=== PATIENT | female | born 1950 | race Caucasian/White ===

== ENCOUNTER 2025-07-17 14:42 | Inpatient (IN) | payer MEDICARE, OTHER, SELFPAY ==
[2025-07-17 09:27] VITALS: BP 170/90
--- NOTE | 2025-07-17 10:13 | ED.GENMED ---
History of Present Illness
<Christoph Castillo PA-C - Last Filed: 07/17/25 13:43>
General
Chief Complaint: Abdominal Pain
Source: patient and records
Time Seen by Provider: 07/17/25 09:54
History of Present Illness
History of Present Illness:
75-year-old female with past medical history of diverticulitis, GERD, previous pancreatic cyst, previous breast cancer in remission presenting to the emergency department for evaluation of generalized lower abdominal pain x 2 weeks accompanied with
poor appetite, fatigue, 10 pound weight loss and noting a loose yellow stool, pain is somewhat reminiscent of previous diverticulitis but states she normally does not have the other symptoms and that her diet modification to a liquid based diet
normally makes the symptoms better. She did not contact her primary care provider but attempted to make an appointment with a GI specialist but was unable to be seen until the end of July. Patient denies any fevers, chills, rigors. She did not
take anything for her symptoms today.
Past History
<Christoph Castillo PA-C - Last Filed: 07/17/25 13:43>
Past History
ED Past Medical History: Cancer, GERD, Other (Hiatal hernia) and Other (Mycobacterial and)
ED Past Surgical History: and Other
Social History
Tobacco: Non-smoker
Alcohol: None
Drug: None
Personal:
Living: with family
Review of Systems
<Christoph Castillo PA-C - Last Filed: 07/17/25 13:43>
Review of Systems
All Other Systems: ROS reviewed and negative except as documented in HPI and ROS
Phy Exam
<Christoph Castillo PA-C - Last Filed: 07/17/25 13:43>
Physical Exam
Physical Exam:
GENERAL: Alert , in no apparent distress
EYE: clear conjunctiva b/l
HEAD: NCAT
ENT: o/p clr, mmm.
CARDIAC: Regular rate and rhythm .
LUNGS: Clear breath sounds bilaterally, no acute respiratory distress, no wheezes/rales/rhonchi
ABDOMEN: Soft, without focal tenderness, no r/g, no cvat
NEUROLOGICAL: Alert and oriented
SKIN: Warm and dry, skin intact.
MUSCULOSKELETAL: well perfused.
PSYCH: Normal and appropriate interaction.
Scores
<Christoph Castillo PA-C - Last Filed: 07/17/25 13:43>
Heart Failure Risk
Heart Failure Risk Score: Not Applicable
Heart Score for Chest Pain Patients
STEMI patient?: Not applicable
Withdrawal Assessment of Alcohol
Withdrawal Assessment Completed?: Not applicable
Course
<Christoph Castillo PA-C - Last Filed: 07/17/25 13:43>
Orders/Labs/Results
Orders:
Orders
07/17/25 10:05
Diphenhydramine [Benadryl] 50 mg IV NOW STA
Hydrocortisone Sod Succinate [Solu-Cortef] 200 mg IV NOW STA
07/17/25 10:06
CT Abd/pelvis W Iv Cont Urgent
Comment:
Reason For Exam: generalized lower abd pain
07/17/25 10:23
Complete Blood Count/With Diff Urgent
Comprehensive Metabolic Panel Urgent
Lipase Urgent
Abnormal Lab Results
07/17/25
10:23
Absolute Neuts (auto) 8.6 H 10^3/uL
(1.4-6.5)
Absolute Lymphs (auto) 0.8 L 10^3/uL
(1.2-3.4)
Neutrophils % 86.2 H %
(42.2-75.2)
Lymphocytes % 7.5 L %
(20.5-51.1)
BUN 6 L mg/dl
(7-17)
Glucose 106 H mg/dl
(70-99)
Total Bilirubin 1.7 H mg/dl
(0.2-1.3)
AST 132 H U/L
(14-36)
ALT 186 H U/L
(0-35)
Alkaline Phosphatase 181 H U/L
(38-126)
07/17/25 10:23
07/17/25 10:23
Vital Signs
Initial and Last Documented VS:
Initial Vital Signs
Temp Pulse Resp BP Pulse Ox
97.7 F 97 20 170/90 98
07/17/25 09:27 07/17/25 09:27 07/17/25 09:27 07/17/25 09:27 07/17/25 09:27
Last Documented Vital Signs
Temp Pulse Resp BP Pulse Ox
97.7 F 97 20 170/90 98
07/17/25 09:27 07/17/25 09:27 07/17/25 09:27 07/17/25 09:27 07/17/25 10:18
<Macario Grover, DO - Last Filed: 07/17/25 13:35>
Orders/Labs/Results
Orders:
Orders
07/17/25 10:05
Diphenhydramine [Benadryl] 50 mg IV NOW STA
Hydrocortisone Sod Succinate [Solu-Cortef] 200 mg IV NOW STA
07/17/25 10:06
CT Abd/pelvis W Iv Cont Urgent
Comment:
Reason For Exam: generalized lower abd pain
07/17/25 10:23
Complete Blood Count/With Diff Urgent
Comprehensive Metabolic Panel Urgent
Lipase Urgent
Abnormal Lab Results
07/17/25
10:23
Absolute Neuts (auto) 8.6 H 10^3/uL
(1.4-6.5)
Absolute Lymphs (auto) 0.8 L 10^3/uL
(1.2-3.4)
Neutrophils % 86.2 H %
(42.2-75.2)
Lymphocytes % 7.5 L %
(20.5-51.1)
BUN 6 L mg/dl
(7-17)
Glucose 106 H mg/dl
(70-99)
Total Bilirubin 1.7 H mg/dl
(0.2-1.3)
AST 132 H U/L
(14-36)
ALT 186 H U/L
(0-35)
Alkaline Phosphatase 181 H U/L
(38-126)
07/17/25 10:23
07/17/25 10:23
Vital Signs
Initial and Last Documented VS:
Initial Vital Signs
Temp Pulse Resp BP Pulse Ox
97.7 F 97 20 170/90 98
07/17/25 09:27 07/17/25 09:27 07/17/25 09:27 07/17/25 09:27 07/17/25 09:27
Last Documented Vital Signs
Temp Pulse Resp BP Pulse Ox
97.7 F 97 20 170/90 98
07/17/25 09:27 07/17/25 09:27 07/17/25 09:27 07/17/25 09:27 07/17/25 10:18
<Christoph Castillo PA-C - Last Filed: 07/17/25 13:43>
MDM/Problems Addressed
Differential Diagnosis Includes:
Diverticulitis
Colitis
Dehydration
Electrolyte Imbalance
C.Diff considered however still with formed stools
Pancreatitis
Less concern for appy/choley
MDM/Problems Addressed:
75-year-old female presenting the ER for evaluation of lower abdominal pain for about 2 weeks, loose stools during this time, attempted more liquid based diet but without any resolution of symptoms. Hemodynamically stable here. Will obtain labs
and CT imaging. Patient declining anything for pain.
<Christoph Castillo PA-C - Last Filed: 07/17/25 13:43>
*Radiology
Radiology exam reviewed: radiology read reviewed
*Pulse Oximetry
SaO2: 98
Oxygen Mode of Delivery: Room air
Patient hypoxic: no
*Critical Care Note
Total Time (30-74mins, 75-104mins- exclusive of procedures): Not Applicable
Data Reviewed
Review of Other/Old Records Reveals: Records and Radiology Studies
<Christoph Castillo PA-C - Last Filed: 07/17/25 13:43>
Patient Management
Discussion with other providers: Hospitalist and Programming Development Project Manager
Escalation/DeEscalation of care consider admission/obs:
CT scan shows obstructive common bile duct and pancreatic duct. I do suspect that this is the cause for patient's pain as well as abnormal LFTs. Given her age, history of the pancreatic cyst combined with her lab abnormalities and imaging findings
I do feel it would be in patient's best interest to be admitted for further evaluation, GI consultation. Hospitalist team is aware and accepts for continued evaluation and treatment. Both the GI team and general surgery team were also notified and
can see the patient in consult as needed.
ED Attending Note
<Christoph Castillo PA-C - Last Filed: 07/17/25 13:43>
-
Portions of this chart may have been created with voice recognition software.� Occasional wrong word or��sound alike� substitutions may have occurred due to the inherent limitations of voice recognition software.
<Macario Grover DO - Last Filed: 07/17/25 13:35>
ED Attending Note
Patient seen and examined by attending physician: Yes
I performed a history and physical exam of patient and discussed management with resident, I reviewed resident's note and agree with documented findings and plan of care.: Yes
ED Attending Note:
I evaluated patient at bedside. White blood cell count is 9.9, total bili 1.7, transaminases are in the 100s, alk phos 181, lipase normal, there is concern for obstruction at CBD and main pancreatic duct related to lesion at the pancreatic head.
Patient did have evaluation of pancreatic cysts and had endoscopic ultrasound in 2022 through [facility] with fine-needle aspiration with pathology that did not suggest malignancy
Discharge Plan
Departure
Patient Disposition: Admit
Date of Disposition: 07/17/25
Time of Disposition: 13:13
Presentation/result/management discussed w/ accepting MD/DO: Hospitalist
Discharge Problem:
Common bile duct obstruction, Pancreatic duct obstruction
Prescriptions:
No Action
lisinopril 5 mg Tablet
5 mg PO DAILY
cholecalciferol (vitamin D3) 25 mcg (1,000 unit) Tablet
50 mcg PO DAILY
Visbiome 112.5 billion cell Capsule
1 cap PO DAILY
Calcium
275 mg PO DAILYPRN PRN (Reason: supplement)
Referrals:
Alejandra Arshad MD [Family Provider, Family Practice]
Interventions
Interventions:
*Neglect/Abuse Screening Last Done: 07/17/25 09:27
*Risk Screen - Suicide (C-SSRS) Last Done: 07/17/25 09:27
OY-Gcxjcv-Gcmnmhktlo Assessment Last Done: 07/17/25 10:30
Discharge Date and Time
Print Language: POLISH
[2025-07-17] MEDS: SOLU-CORTEF 200 MG IV (10:24)
[2025-07-17] MEDS: BENADRYL 50 MG IV (10:24)
[2025-07-17 10:27] VITALS: BMI 25.3
[2025-07-17 10:48] LABS: Hematocrit 40.9 % (37.0-47.0); Hemoglobin 13.9 g/dL (12.0-16.0); Mean Corp Hgb Conc. 34.0 g/dL (33.0-37.0); Mean Corpuscular Volume 88.1 fL (81.0-99.0); Nucleated Red Blood Cells % 0 %; Platelet Count 265 10^3/uL (130-400); Red Cell Dist. Width 13.4 % (11.5-14.5)
[2025-07-17 10:49] LABS: ALT (SGPT) 186 U/L (0-35); AST (SGOT) 132 U/L (14-36); Albumin 4.5 g/dl (3.5-5.0); Alkaline Phosphatase 181 U/L (38-126); Blood Urea Nitrogen 6 mg/dl (7-17); Calcium 9.7 mg/dl (8.4-10.2); Carbon Dioxide 25 mmol/L (22-30); Chloride 104 mmol/L (98-107); Estimated Creatinine Clearance 49 ml/min; Glucose 106 mg/dl (70-99); Lipase 67 U/L (23-300); Potassium 3.6 mmol/L (3.5-5.1); Sodium 139 mmol/L (135-145); Total Protein 7.4 g/dl (6.3-8.2); eGFR > 60.00
--- NOTE | 2025-07-17 13:38 | CON.GI ---
Consultation
-
Date/Time Consultation Requested: 07/17/25, 1:14 PM
Date/Time Consultation Performed: 07/17/25, 1:38 PM
Requesting Provider: MAYELIN Redd
Performing Provider: Moisés Fernandes DO
Reason for Consultation: Pancreatic lesion with obstruction
Medical History
Chief Complaint / HPI
Chief Complaint: Abdominal Pain
History of Present Illness:
Ms. Meza is a 75 y.o female GERD, history of diverticulitis, hx of breast cancer (in remission) and history of pancreatic cysts (s/p prior EUS 2022) who presented to the ED with generalized abdominal pain and weight loss. Found to have a
pancreatic lesion with concern for obstruction of the CBD with diffuse dilation of the biliary tree for which GI has been consulted for further evaluation and management.
Patient states she was in her usual state of health until 2 weeks ago where she developed generalized, mid abdominal discomfort with a bandlike sensation over her abdomen with associated poor appetite, nausea and fatigue. She initially felt that
her symptoms may have been related to diverticulitis as she has had this in the past although the symptoms were somewhat different. She tried de-escalating to a clear liquid diet without any relief of symptoms. Her abdominal pain continued to
progress over Kip and started noticing pale, yellow-colored stools along with darker urine along with nausea without any episodes of emesis. She has also had a 10 pound unintentional weight loss during this time. She denied any scleral
icterus or jaundice. Otherwise, she denies any significant alcohol use, smoking history or other family history of pancreatic cancer. Denies any prior history of pancreatitis. However, history significant for pancreatic cysts and she recently
underwent a prior EUS at [facility] back on 05/2023 due to a slowly enlarging pancreatic head cyst. This demonstrated multiple pancreatic cysts with the largest cyst measuring approximately 2.2 cm concerning for a mucinous cyst with
cytology demonstrating a low likelihood of high-grade dysplasia/malignancy. She was advised ongoing follow-up in 6 months with MRI imaging however she did not follow-up. Given her worsening abdominal pain and pale-colored stools, she came to the
ER for further evaluation. Otherwise, she denies any fevers, chills, or other constitutional symptoms.
Prior EUS 06/05/2023- Impression: Multiple pancreatic cysts throughout the pancreas. The largest one measured 2.2 cm in the HOP. I do not see any worrisome features within any of the cysts. Small foci in the gallbladder, likely gallstone less likely
polyp.
Recommendations: Await cytology/molecular markers. If there are no concerning features recommend ongoing surveillance with MRI/MRCP and clinic review in 6 months. No repeat EUS exam
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 Specifically, multiple KRAS mutations identified in the cystic fluid sample.
In the ED, patient was afebrile and HD-stable. Labs notable for AST 132, ALT 186, ALP 181, and T Bili 1.7. Lipase 67. Of note, previous LFTs normal back on 07/2023. CBC with WBC 9.9, Hgb 13.9, and plts 265. CT imaging demonstrated an atrophic
appearing pancreas with dilated PD along with a 1.8 cm ill-defined lesion within the pancreatic head with associated obstruction of the CBD with proximal dilation of both the extrahepatic and intrahepatic biliary tree. Given her CT imaging, patient
was admitted to internal medicine for further evaluation.
Past Medical History
Past Medical History: Other (Breast cancer (in remission), GERD, diverticulitis)
Past Surgical History: Other ()
Social History
Tobacco: Non-Smoker
Alcohol: None
Drug: None
Personal:
Living: With Family
Family History
Family History: Reviewed & Not Pertinent
Allergies / Home Medications
Allergy/AdvReac Type Severity Reaction Status Date / Time
codeine (Codeine) Allergy Hives Verified 07/17/25 09:26
Gadolinium-Containing Allergy Hives Verified 07/17/25 09:26
Contrast Medi
Iodinated Contrast Media (IV Allergy Rash Verified 07/17/25 09:26
Dye, Iodine Containing
Contrast )
Penicillins Allergy Anaphylaxis Verified 07/17/25 09:26
strawberry Allergy Unknown Verified 07/17/25 09:26
vancomycin Allergy Rash Verified 07/17/25 09:26
MSG Allergy Unknown Uncoded 07/17/25 09:26
propilis Allergy Unknown Uncoded 07/17/25 09:26
�Medication �Instructions �Recorded
Calcium 275 mg PO DAILYPRN PRN supplement 07/17/25
Lactobac no.2-Bifidobac no.1-S. 1 cap PO DAILY Supplement 07/17/25
thermo 112.5 billion cell capsule
(Visbiome)
cholecalciferol (vitamin D3) 25 50 mcg PO DAILY Supplement 07/17/25
mcg (1,000 unit) tablet
lisinopril 5 mg tablet 5 mg PO DAILY Blood Pressure 07/17/25
Review of Systems
-
All other systems: A 12 pt ROS was Negative except as stated above in HPI
Vital Signs
Temp Pulse Resp BP Pulse Ox
97.7 F 97 20 170/90 98
07/17/25 09:27 07/17/25 09:27 07/17/25 09:27 07/17/25 09:27 07/17/25 10:18
Physical Exam
Exam
General: No Apparent Distress and Comfortable
HEENT: Anicteric and Moist Mucous Membranes
Respiratory: Other (Normal WOB on room air)
Cardiac: Other (RR on tele)
GI: Soft and Tender (Mild TTP in epigastric region without rebound tenderness or involuntary guarding)
Skin: Warm and Other (No jaundice)
Neuro: Nonfocal/Grossly Intact
Psych: Calm
Results
WBC 9.9 10^3/uL (4.8-10.8) 07/17/25 10:23
Hgb 13.9 g/dL (12.0-16.0) 07/17/25 10:23
Hct 40.9 % (37.0-47.0) 07/17/25 10:23
MCV 88.1 fL (81.0-99.0) 07/17/25 10:23
Plt Count 265 10^3/uL (130-400) 07/17/25 10:23
Absolute Neuts (auto) 8.6 10^3/uL (1.4-6.5) H 07/17/25 10:23
Sodium 139 mmol/L (135-145) 07/17/25 10:23
Potassium 3.6 mmol/L (3.5-5.1) 07/17/25 10:23
Chloride 104 mmol/L (98-107) 07/17/25 10:23
Carbon Dioxide 25 mmol/L (22-30) 07/17/25 10:23
BUN 6 mg/dl (7-17) L 07/17/25 10:23
Creatinine 0.9 mg/dL (0.6-1.0) 07/17/25 10:23
Calcium 9.7 mg/dl (8.4-10.2) 07/17/25 10:23
Total Bilirubin 1.7 mg/dl (0.2-1.3) H 07/17/25 10:23
AST 132 U/L (14-36) H 07/17/25 10:23
ALT 186 U/L (0-35) H 07/17/25 10:23
Alkaline Phosphatase 181 U/L (38-126) H 07/17/25 10:23
Lipase 67 U/L (23-300) 07/17/25 10:23
Diagnostic Image Results: As above
Assessment / Plan
-
Ms. Meza is a 75 y.o female GERD, history of diverticulitis, hx of breast cancer (in remission) and history of pancreatic cysts (s/p prior EUS 2022) who presented to the ED with generalized abdominal pain and weight loss. Found to have a
pancreatic lesion with concern for obstruction of the CBD with diffuse dilation of the biliary tree. GI has been consulted for further evaluation and management.
#Pancreatic Lesion, HOP
#Hx of Pancreatic Cysts (s/p EUS 05/2023)
#Doubt Duct Sign (PD and Biliary Dilation)
#C/f Biliary Obstruction #Elevated LFTs
#Abdominal Pain
#Unintentional Weight Loss
Prior EUS ([facility]- Aracely Overton MD PHD) 06/05/2023- Impression: Multiple pancreatic cysts throughout the pancreas. The largest one measured 2.2 cm in the HOP. I do not see any worrisome features within any of the cysts. Small
foci in the gallbladder, likely gallstone less likely polyp.
Recommendations: Await cytology/molecular markers. If there are no concerning features recommend ongoing surveillance with MRI/MRCP and clinic review in 6 months. No repeat EUS exam
Cytology: (+) Mucinous (IPMN), likely low HGD/cancer. Specifically, multiple KRAS mutations identified in the cystic fluid sample.
Impression: Patient presenting with worsening abdominal pain over the past 2 weeks along with nausea, poor p.o. intake and an unintentional 10 pound weight loss over this time. Found to have elevated LFTs and CT imaging demonstrating a pancreatic
lesion with a double duct sign with dilation of both the main pancreatic duct and biliary tree. Specifically, concern for obstruction of the CBD with diffuse proximal dilation of both the extrahepatic and intrahepatic biliary tree. Of note,
patient has a history of pancreatic cysts and previously underwent a prior EUS 05/2023 due to the concern for enlarging pancreatic cyst within the head of her pancreas. Appears cytology was consistent with a mucinous cyst with low risk features
(possible MCN as reportedly no communication with main PD versus IPMN). She was advised to have a repeat MRI in 6 months however never followed up. Clinically, concern for potential malignant transformation of her known pancreatic cyst given her
CT imaging along with her elevated LFTs and weight loss versus obstructing pancreatic cystic lesion versus other malignancy (hx of breast cancer although much less likely). She would benefit from MRI abdomen WWO contrast for further evaluation
along with an eventual EUS/ERCP pending MRI findings.
Recommendations:
- Keep NPO pending MRI
- Trend LFTs q daily
- Observe off IV abx as no signs to suggest biliary sepsis
- Ordered MRI/MRCP WWO contrast for further evaluation
- Would likely benefit from eventual EUS with ERCP given CT findings and elevated LFTs pending MRI. To be discussed with Dr. Salgado once MRI obtained
- Pain control and anti-emetics PRN
- Rest of care as per primary team
Discussed with both patient and patient's this afternoon. GI will continue to follow, please call with any questions or concerns.
Data Reviewed
-
Radiology: Image Personally Visualized and interpreted and Report Reviewed by me
CT Scan: Image Personally Visualized and interpreted and Report Reviewed by me
Old Records: Reviewed
-
-
Thank you for consultation and allowing me to participate in the patient's care. Please call the confidential investigator GI physician during the after hours with any questions or concerns.
[2025-07-17 14:10] VITALS: BP 164/105
--- NOTE | 2025-07-17 14:26 | HPS.HSE ---
Addendum entered and electronically signed by Dru Malhotra MD 07/18/25 08:49:
I personally reviewed and evaluated this patient with the resident. I agree with above unless if otherwise stated below.
I personally reviewed labs and imaging furniture sales consultant notes case management note
Presented with abdominal pain found to have a CT with enlarging pancreatic cyst along with transaminitis
Discussed case with gastroenterology obtain MRCP n.p.o. concern for malignant transformation of pancreatic cyst
Consult advanced endoscopist for EUS biopsy plus minus stent
Follow-up LFTs
Original Note:
Family Physician
-
Family Physician: Alejandra Arshad MD
Chief Complaint
-
Abdominal pain associated with nausea, fatigue and weight loss
History of Present Illness
Patient is a 75-year-old female with past medical history of GERD, hiatal hernia, essential hypertension, diverticulitis, pancreatic cyst diagnosed in 2002 and last screening done in 2022 via endoscopic ultrasounds, breast cancer in remission and
she has annual follow-ups at [facility].
She was in her usual state of health about 2 weeks ago when she had this bandlike pain in her lower abdomen involving both right and left lower quadrants but more focused on the right lower quadrant and it was associated with loose stools, 1 episode
of vomiting and nausea. She is usually feels that her diverticulitis starts to flareup like this and she herself puts herself on liquid diet that helps control her symptoms. She tried shifting to the liquid diet but the symptoms did not improve.
She also lost 10 pound of weight possibly due to being only on liquid diet. She feels lightheaded and nauseous. Initially the stools were once or twice a day but over the last week she had multiple bowel movements in a day that made her feel
lightheaded. Denies any blood in stools, black stools, mucus in stools, burning micturition, urgency, frequency, chest pain, shortness of breath, fever or chills. She reports yellow-colored stools and mild darkening of urine.
Denies any yellowing of skin.
Medical History
Past Medical History
Past Medical History: Reports Cancer (Breast cancer in remission), HTN and Other (Diverticulitis, hiatal hernia, GERD)
Past Surgical History: Reports and Other (Breast surgery)
Social History
Tobacco: Non-smoker
Alcohol: Occasional
Drug: None
Personal:
Living: With Family
Family History
Family History: Not pertinent
Allergies / Home Medications
Allergies reflects when Allergies were last updated in [employer].
Home Medications with original date entered in [employer]
Allergy/Medication List:
Allergies
Allergy/AdvReac Type Severity Reaction Status Date / Time
codeine (Codeine) Allergy Hives Verified 07/17/25 09:26
Gadolinium-Containing Allergy Hives Verified 07/17/25 09:26
Contrast Medi
Iodinated Contrast Media (IV Allergy Rash Verified 07/17/25 09:26
Dye, Iodine Containing
Contrast )
Penicillins Allergy Anaphylaxis Verified 07/17/25 09:26
strawberry Allergy Unknown Verified 07/17/25 09:26
vancomycin Allergy Rash Verified 07/17/25 09:26
MSG Allergy Unknown Uncoded 07/17/25 09:26
propilis Allergy Unknown Uncoded 07/17/25 09:26
Home Medications
Calcium 275 mg PO DAILYPRN PRN supplement 07/17/25
Lactobac no.2-Bifidobac no.1-S. thermo 112.5 billion cell capsule (Visbiome) 1 cap PO DAILY Supplement 07/17/25
cholecalciferol (vitamin D3) 25 mcg (1,000 unit) tablet 50 mcg PO DAILY Supplement 07/17/25
lisinopril 5 mg tablet 5 mg PO DAILY Blood Pressure 07/17/25
Review of Systems
-
Constitutional: Reports Weight Loss and Fatigue
EENT: Reports No Symptoms
Respiratory: Reports No Symptoms
Cardiac: Reports No Symptoms
Abdomen/GI: Reports Abdominal Pain, Nausea and Vomiting
: Reports No Symptoms
Musculoskeletal: Reports Joint Pain (small joints of hand and feet)
Skin: Reports No Symptoms
Neurological: Reports Weakness
Endocrine: Reports No Symptoms
Hematologic/Lymphatic: Reports No Symptoms
Psych: Reports No Symptoms
Physical Exam
Vital Signs
Vital Signs
Temp Pulse Resp BP Pulse Ox
97.7 F 90 18 164/105 98
07/17/25 09:27 07/17/25 14:10 07/17/25 14:10 07/17/25 14:10 07/17/25 14:10
Physical Exam
General: Well Developed, Well Nourished, No Apparent Distress and Comfortable
HEENT: Anicteric, Moist mucous membranes and [place] Conjunctivae
Respiratory: Clear and Non Labored Respirations
Cardiac: S1/S2 and Regular Rhythm; No Murmur, Rub or Gallop
GI: Soft, Non Tender, Non Distended and Normal Bowel Sounds
Musculoskeletal: No Clubbing, No Cyanosis and No Edema
Skin: Warm and Dry
Neuro: Awake, Alert, No Motor Deficits and Nonfocal/grossly intact
Psych: Calm
Laboratory Results
-
07/17/25 10:23
07/17/25 10:23
Laboratory Results
Total Bilirubin 1.7 mg/dl (0.2-1.3) H 07/17/25 10:23
AST 132 U/L (14-36) H 07/17/25 10:23
ALT 186 U/L (0-35) H 07/17/25 10:23
Alkaline Phosphatase 181 U/L (38-126) H 07/17/25 10:23
Lipase 67 U/L (23-300) 07/17/25 10:23
Impression/Plan
-
IMPRESSION:
Patient is a 75-year-old female with known past medical history of pancreatic cyst, on annual screening ultrasounds from last 20 years. Last endoscopic ultrasound done in 2022 showed stable size of the pancreatic cyst and a less than 10% chance of
being converted to cancer. She did not do any screenings over the last couple of years. Presented with lower abdominal pain, fatigue, nausea and weight loss. Reports yellowish stools and slight darkened urine.
CT abdomen/pelvis 07/07/2025
The pancreas is atrophic with dilation of the main pancreatic duct. There appears to be a 1.8 cm ill-defined lesion within the pancreatic head with associated obstruction of the main pancreatic duct as well as obstruction of the common bile duct.
There is intrahepatic and extra hepatic biliary dilation as well as mild dilation of the gallbladder. There are no CT findings suggestive of acute cholecystitis. Recommend abdominal MRI or US for further evaluation.
Elevated liver enzymes
ASSESSMENT/PLAN:
# Abdominal pain most likely secondary to obstructing pancreatic cyst
CT abdomen/pelvis, shows 1.8 cm ill-defined lesion within the pancreatic head with obstruction of main pancreatic duct as well as common bile ducts along with intrahepatic and extrahepatic biliary dilatation as well as mid dilatation of gallbladder
GI recommendations appreciated-plan to do MRI abdomen
Liver enzymes elevated with total bilirubin of 1.7, AST 132, ALT 186, alkaline phosphatase 181
Lipase normal
No evidence of cholecystitis on clinical exam as well as CT abdomen
Check stool studies
Continue clear liquid diet
Continue to monitor vitals and liver enzymes
# Elevated liver enzymes
Trend liver enzymes
# Essential hypertension
Continue to monitor blood pressure
Continue home medications
# Diverticulitis
Last colonoscopy done in 2021-no abnormal findings
CODE STATUS-limited DNR
DVT prophylaxis- Lovenox
NPO until Mrcp done
present at bedside-discussed management plan and answered all questions and concerns
--- NOTE | 2025-07-17 15:02 | CM ---
Chart reviewed
Spoke with pt and at ED bedside
Lives in [address] with
Independent
no DME
PCP Alejandra Arshad
[facility] in [place]
no hx of VN nor SNF
Cm will continue to follow up for any dcp needs
[2025-07-17 16:37] VITALS: BP 138/91
[2025-07-17] MEDS: LR 1000 IV (16:37)
[2025-07-17 18:00] VITALS: BP 142/84
[2025-07-17 20:00] VITALS: BP 142/78
[2025-07-17] MEDS: LOVENOX 40 MG SC (21:36)
[2025-07-17 22:23] VITALS: BP 154/83
[2025-07-18] MEDS: LR 1000 IV ×2 (02:49→19:04)
[2025-07-18 06:00] VITALS: BMI 26.1
[2025-07-18 06:21] LABS: Hematocrit 34.8 % (37.0-47.0); Hemoglobin 12.1 g/dL (12.0-16.0); Mean Corp Hgb Conc. 34.8 g/dL (33.0-37.0); Mean Corpuscular Volume 87.0 fL (81.0-99.0); Nucleated Red Blood Cells % 0 %; Platelet Count 247 10^3/uL (130-400); Red Cell Dist. Width 13.4 % (11.5-14.5)
[2025-07-18 06:35] LABS: INR 1.14; PT 14.8 Sec (11.4-14.6)
[2025-07-18 06:36] LABS: APTT 26.4 Sec (23.4-35.0)
[2025-07-18 06:50] LABS: ALT (SGPT) 130 U/L (0-35); AST (SGOT) 68 U/L (14-36); Albumin 4.1 g/dl (3.5-5.0); Alkaline Phosphatase 169 U/L (38-126); Blood Urea Nitrogen 13 mg/dl (7-17); Calcium 9.2 mg/dl (8.4-10.2); Carbon Dioxide 21 mmol/L (22-30); Chloride 107 mmol/L (98-107); Estimated Creatinine Clearance 63 ml/min; Glucose 84 mg/dl (70-99); Magnesium 2.1 mg/dl (1.6-2.3); Potassium 3.9 mmol/L (3.5-5.1); Sodium 139 mmol/L (135-145); Total Protein 6.9 g/dl (6.3-8.2); eGFR > 60.00
[2025-07-18 08:58] VITALS: BP 153/80
[2025-07-18] MEDS: VITAMIN D3 (cholecalciferol) 50 MCG PO (09:10)
--- NOTE | 2025-07-18 09:49 | CM ---
patient seen at bedside
MRI ordered
PLAN: home, no needs when stable, CM to continue to follow
--- NOTE | 2025-07-18 09:58 | W.PN.HOSP.TC ---
Addendum entered and electronically signed by Dru Malhotra MD 07/18/25 16:42:
I personally reviewed and evaluated this patient with the resident. I agree with above unless if otherwise stated below.
I personally reviewed labs and imaging senior billing consultant notes case management note
Presented with abdominal pain found to have a CT with enlarging pancreatic cyst along with transaminitis
MRCP concerning for pancreatic adeno
Check cea, ca19-9
Consult advanced endoscopist for EUS biopsy plus minus stent
Follow-up LFTs
Original Note:
Today's Communication/Plan
-
MRCP
Trend liver enzymes
Resume diet once done with MRCP
Assessment / Plan
Assessment / Plan
IMPRESSION:
Patient is a 75-year-old female with known past medical history of pancreatic cyst, on annual screening ultrasounds from last 20 years. Last endoscopic ultrasound done in 2022 showed stable size of the pancreatic cyst and a biopsy showed less than
10% chance of being converted to cancer. No screenings over last couple of years
Presented with abdominal pain found to have a CT with enlarging pancreatic cyst along with transaminitis
ASSESSMENT/PLAN:
# Abdominal pain most likely secondary to obstructing pancreatic cyst
CT abdomen/pelvis, shows 1.8 cm ill-defined lesion within the pancreatic head with obstruction of main pancreatic duct as well as common bile ducts along with intrahepatic and extrahepatic biliary dilatation as well as mid dilatation of gallbladder
GI recommendations appreciated-plan to do MRI abdomen
No evidence of cholecystitis on clinical exam as well as CT abdomen
Check stool studies
Continue to monitor vitals and liver enzymes
Plan to consult advanced endoscopist for EUS biopsy with or without stent
# Elevated liver enzymes
Trending down, continue to monitor
# Essential hypertension
Continue to monitor blood pressure
Continue home medications
# Diverticulitis
Last colonoscopy done in 2021-no abnormal findings
CODE STATUS-Full code
DVT prophylaxis- Lovenox
NPO until Mrcp done
present at bedside-discussed management plan and answered all questions and concerns
Anticipated Discharge: 24 - 48 hours
Subjective/Interval History
-
Date of Service: July 18, 2025
Patient seen and examined at bedside
Some loose stools this morning
Reports abdominal pain in right and left lower quadrants
Awaiting MRI
Remains n.p.o.
Objective Data
-
Labs:
Laboratory Results
07/18/25
05:58
WBC 7.6
Hgb 12.1
Hct 34.8 L
Plt Count 247
PT 14.8 H
INR 1.14
APTT 26.4
Sodium 139
Potassium 3.9
Chloride 107
Carbon Dioxide 21 L
BUN 13
Creatinine 0.7
Glucose 84
Calcium 9.2
Total Bilirubin 1.1
AST 68 H
ALT 130 H
Alkaline Phosphatase 169 H
Vital Signs:
Vital Signs
Temp Pulse Resp BP Pulse Ox
98.0 F 81 15 153/80 96
07/18/25 08:58 07/18/25 08:58 07/18/25 08:58 07/18/25 08:58 07/18/25 08:58
I&O
07/17/25 07/18/25 07/19/25
06:59 06:59 06:59
Intake Total 1200 / 1200
Balance 1200 / 1200
Review of Systems
-
Abdomen/GI: Reports Abdominal Pain, Nausea and Bloated
Physical Exam
-
General: No Apparent Distress, Comfortable and Conversant
HEENT: Normocephalic, Atraumatic and Moist Mucous Membranes
Respiratory: Clear to Auscultation; Negative Wheezes, Rales or Rhonchi
Cardiac: Regular Rhythm and S1/S2; Negative Murmur, Rub or Gallop
GI: Soft, Nontender, Nondistended and Normal Bowel Sounds
Musculoskeletal: No Clubbing, No Cyanosis and No Edema
Skin: Warm and Dry
Neuro: Awake, AO x 3 and Nonfocal/Grossly Intact
Psych: Calm
[2025-07-18] MEDS: DELTASONE 50 MG PO (10:17)
[2025-07-18] MEDS: ZESTRIL 5 MG PO (10:19)
[2025-07-18] MEDS: BENADRYL 50 MG IV (12:10)
[2025-07-18 16:13] VITALS: BP 168/80
[2025-07-18 17:50] VITALS: BP 159/82; BP 168/80
[2025-07-18 18:00] VITALS: BP 169/83
[2025-07-18] MEDS: SUBLIMAZE 50 MCG IV (18:11)
[2025-07-18 18:46] VITALS: BP 154/76
[2025-07-18] MEDS: LOVENOX 40 MG SC (19:03)
[2025-07-18 23:00] VITALS: BP 114/50
[2025-07-19 00:02] VITALS: BP 129/56
[2025-07-19] MEDS: LR 1000 IV (06:00)
--- NOTE | 2025-07-19 06:55 | W.PN.HOSP.TC ---
Addendum entered and electronically signed by Dru Malhotra MD 07/19/25 12:16:
I personally reviewed and evaluated this patient with the resident. I agree with above unless if otherwise stated below.
I personally reviewed labs and imaging media consultant notes case management note
Presented with abdominal pain found to have a CT with enlarging pancreatic cyst along with transaminitis
MRCP concerning for pancreatic adeno
S/p EUS with Bx
Follow up with outpatient GI and Pancreatic Cyst clinic
Check cea, ca19-9
Follow-up LFTs
If able to tolerate diet then can dc home
Original Note:
Today's Communication/Plan
-
Vitally and hemodynamically stable for discharge
Advance diet as tolerated
trend lfts
follow up with GI office on outpatient basis
Assessment / Plan
Assessment / Plan
IMPRESSION:
Patient is a 75-year-old female with known past medical history of pancreatic cyst, on annual screening ultrasounds from last 20 years. Last endoscopic ultrasound done in 2022 showed stable size of the pancreatic cyst and a biopsy showed less than
10% chance of being converted to cancer. No screenings over last couple of years
Presented with abdominal pain found to have a CT with enlarging pancreatic cyst along with transaminitis
MRI suspicion for an obstructing mass
Endoscopic ultrasound with FNAC of mass done-specimen sent for pathology
ASSESSMENT/PLAN:
# Abdominal pain most likely secondary to obstructing pancreatic cyst
CT abdomen/pelvis, shows 1.8 cm ill-defined lesion within the pancreatic head with obstruction of main pancreatic duct as well as common bile ducts along with intrahepatic and extrahepatic biliary dilatation as well as mid dilatation of gallbladder
MRI Abdomen-Bile duct dilatation and dilatation of the main pancreatic duct and multiple ductal side branches. 1.9 cm region of intermediate signal and hypoenhancement in the head of the pancreas considered suspicious for an obstructing mass
(pancreatic adenocarcinoma)
Endoscopic US
Impression: - A mass was identified in the pancreatic head. Fine needle aspiration performed.Endosonographically, the MPD had a dilated appearance and dilation in the common bile duct which measured up to 8mm.
GI recommendations appreciated-plan to advance diet,await cytology results and outpatient follow up in GI office
Stool studies negative for Norovirus,stool culture pending
# Elevated liver enzymes
Trending down, continue to monitor
# Essential hypertension
Stable
Continue home medications
# Diverticulitis
Last colonoscopy done in 2021-no abnormal findings
CODE STATUS-Full code
DVT prophylaxis- Lovenox
AAdvance det as tolerated
present at bedside-discussed management plan and answered all questions and concerns
Anticipated Discharge: Within 24 hours
Subjective/Interval History
-
Date of Service: July 19, 2025
Patient seen and examined at bedside
No new complains
Tolerating diet
Discussed the MRI results and endoscopic ultrasound
Overall feels well
Objective Data
-
Labs:
Laboratory Results
07/19/25 07/19/25
06:00 06:50
WBC Pending
Hgb Pending
Hct Pending
Plt Count Pending
Sodium Pending
Potassium Pending
Chloride Pending
Carbon Dioxide Pending
BUN Pending
Creatinine Pending
Glucose Pending
Calcium Pending
Total Bilirubin Pending
AST Pending
ALT Pending
Alkaline Phosphatase Pending
Vital Signs:
Vital Signs
Temp Pulse Resp BP Pulse Ox
98.6 F 55 20 129/56 95
07/18/25 23:00 07/19/25 00:02 07/18/25 23:00 07/19/25 00:02 07/18/25 23:00
I&O
07/17/25 07/18/25 07/19/25
06:59 06:59 06:59
Intake Total 1200 / 1200 1400 / 1400
Balance 1200 / 1200 1399 / 1399
Review of Systems
-
All other systems: Reviewed and negative
Physical Exam
-
General: Well Developed, No Apparent Distress and Comfortable
HEENT: Normocephalic, Moist Mucous Membranes and Anicteric
Respiratory: Clear to Auscultation; Negative Wheezes, Rales or Rhonchi
Cardiac: Regular Rhythm and S1/S2; Negative Murmur, Rub or Gallop
GI: Soft, Nontender, Nondistended and Normal Bowel Sounds
Musculoskeletal: No Clubbing, No Cyanosis and No Edema
Skin: Warm and Dry
Neuro: Awake, AO x 3 and Nonfocal/Grossly Intact
Psych: Calm
[2025-07-19 08:00] VITALS: BP 118/54
[2025-07-19 08:52] LABS: Hematocrit 39.3 % (37.0-47.0); Hemoglobin 13.5 g/dL (12.0-16.0); Mean Corp Hgb Conc. 34.4 g/dL (33.0-37.0); Mean Corpuscular Volume 87.5 fL (81.0-99.0); Platelet Count 242 10^3/uL (130-400); Red Cell Dist. Width 13.6 % (11.5-14.5)
--- NOTE | 2025-07-19 09:25 | PTCARENOTE ---
Patient ambulating in room with a steady gait. Patient tolerated regular diet. Patient has no c/o new pain or nausea. Spouse at bedside.
[2025-07-19 10:04] LABS: ALT (SGPT) 120 U/L (0-35); AST (SGOT) 51 U/L (14-36); Albumin 4.1 g/dl (3.5-5.0); Alkaline Phosphatase 148 U/L (38-126); Blood Urea Nitrogen 18 mg/dl (7-17); Calcium 9.4 mg/dl (8.4-10.2); Carbon Dioxide 21 mmol/L (22-30); Chloride 103 mmol/L (98-107); Estimated Creatinine Clearance 53 ml/min; Glucose 115 mg/dl (70-99); Magnesium 2.3 mg/dl (1.6-2.3); Potassium 4.5 mmol/L (3.5-5.1); Sodium 138 mmol/L (135-145); Total Protein 6.8 g/dl (6.3-8.2); eGFR > 60.00
[2025-07-19] MEDS: VITAMIN D3 (cholecalciferol) 50 MCG PO (10:17)
[2025-07-19] MEDS: ZESTRIL 5 MG PO (10:17)
[2025-07-19] MEDS: LR IV (10:17)
--- NOTE | 2025-07-19 10:40 | CM ---
Addendum entered by Dayanara Patel 07/19/25 13:22:
IMM explained
Original Note:
Patient seen at bedside with Santino
advanced diet
biopsy yesterday
PLAN: Home, no needs when stable
to transport
--- NOTE | 2025-07-19 11:15 | W.DCSUMMARY ---
Addendum entered and electronically signed by Dru Malhotra MD 07/31/25 08:12:
malignant neoplasm of head of pancreas is not yet confirmed but remains a suspected condition
Original Note:
Documented by User: Elham Anna MD, Resident 07/19/25 11:28
Discharge Summary
Discharge Data
Date of Admission: 07/17/25
Date of Discharge: 07/19/25
-
Pending Results: Yes
Additional Pending Results:
A mass was identified in the pancreatic head. Fine needle aspiration performed.Pathology report pending
Hospital Course
Discharging Physician :
Dru Malhotra Shahzadi, Sandal
Disposition :
Home
Primary care physician :
Alejandra Arshad MD
Principal Discharge diagnosis :
Cystic lesion/mass of pancreatic head
CBD dilatation
Elevated liver enzymes
Chronic Discharge diagnosis :
Essential hypertension
Diverticulitis
Hospital Course :
Patient is a 75-year-old female with known past medical history of pancreatic cyst, on annual screening ultrasounds from last 20 years. Last endoscopic ultrasound done in 2022 showed stable size of the pancreatic cyst and a biopsy showed less than
10% chance of being converted to cancer. No screenings over last couple of years
Presented with abdominal pain found to have a CT with enlarging pancreatic cyst along with transaminitis.Liver enzymes trending down.
MRI suspicion for an obstructing mass
Endoscopic ultrasound with FNAC of mass done-specimen sent for pathology-Pathology pending.
Follow up on outpatient basis with Gastroenterology
Important imaging findings :
Abdomen/Pelvis CT 07/17/25
IMPRESSION:
The pancreas is atrophic with dilation of the main pancreatic duct. There appears to be a 1.8 cm ill-defined lesion within the pancreatic head with associated obstruction of the main pancreatic duct as well as obstruction of the common bile duct.
There is intrahepatic and extra hepatic biliary dilation as well as mild dilation of the gallbladder. There are no CT findings suggestive of acute cholecystitis. Recommend abdominal MRI or US for further evaluation.
The endometrium is thickened measuring 1.2 cm. Recommend dedicated pelvic ultrasound for further evaluation.
There is mild circumferential urinary bladder wall thickening which is nonspecific although cystitis is possible. Recommend correlation with urinalysis.
Abdomen MRI 07/18/25
IMPRESSION:
Bile duct dilatation and dilatation of the main pancreatic duct and multiple ductal side branches. 1.9 cm region of intermediate signal and hypoenhancement in the head of the pancreas considered suspicious for an obstructing mass (pancreatic
adenocarcinoma) within the limitations of involuntary patient motion artifact. Recommend correlation with an endoscopic ultrasound/soft tissue sampling.
Procedure findings :
Upper Endoscopy and pancreatic cyst biopsy
Impression:
- No gross lesions in the entire esophagus.
- No gross lesions in the entire stomach.
- Normal duodenal bulb, first portion of the duodenum and second
portion of the duodenum.
- A mass was identified in the pancreatic head. Fine needle
aspiration performed.
- A cystic lesion was seen in the pancreatic head.
- Main pancreatic duct (MPD) diameter was measured.
Endosonographically, the MPD had a dilated appearance.
- Multiple cystic lesions were seen in the pancreatic body.
- There was dilation in the common bile duct which measured up to 8
mm.
Discharge Plan
-
Patient Disposition: Home (Routine Discharge)
Discharge Diagnosis/Procedures: Cystic lesion/mass of pancreatic head
CBD dilatation
Elevated liver enzymes
Condition: Fair
Diet: Regular
Activity: As tolerated
Driving Restrictions: As prior to admission
Bathing Restrictions: OK to Shower
Referrals:
Alejandra Arshad MD [Family Provider, Family Practice] - in less than 1 week
Shakir Salgado MD [Active, Gastroenterology] - in three to four weeks
Referral Note: Please call [phone], to schedule an appt
Prescriptions:
Continued
lisinopril 5 mg Tablet
5 mg PO DAILY
cholecalciferol (vitamin D3) 25 mcg (1,000 unit) Tablet
50 mcg PO DAILY
Visbiome 112.5 billion cell Capsule
1 cap PO DAILY
Calcium
275 mg PO DAILYPRN PRN (Reason: supplement)
Discharge Orders:
Discharge Patient (As Directed); Ordered 07/19/25
Ordered By: Elham Anna
Discharge Date and Time
Print Language: AMERICAN

Documented by User: Dru Malhotra MD 07/19/25 12:07
Discharge Summary
Discharge Data
Date of Admission: 07/17/25
Date of Discharge: 07/19/25
Discharge Plan
-
Patient Disposition: Home (Routine Discharge)
Discharge Diagnosis/Procedures: Cystic lesion/mass of pancreatic head
CBD dilatation
Elevated liver enzymes
Condition: Fair
Diet: Regular
Activity: As tolerated
Driving Restrictions: As prior to admission
Bathing Restrictions: OK to Shower
Referrals:
Alejandra Arshad MD [Family Provider, Family Practice] - in less than 1 week
Shakir Salgado MD [Active, Gastroenterology] - in three to four weeks
Referral Note: Please call [phone], to schedule an appt
Prescriptions:
Continued
lisinopril 5 mg Tablet
5 mg PO DAILY
cholecalciferol (vitamin D3) 25 mcg (1,000 unit) Tablet
50 mcg PO DAILY
Visbiome 112.5 billion cell Capsule
1 cap PO DAILY
Calcium
275 mg PO DAILYPRN PRN (Reason: supplement)
Discharge Orders:
Discharge Patient (As Directed); Ordered 07/19/25
Ordered By: Elham Anna
Discharge Date and Time
Print Language: AMERICAN
--- NOTE | 2025-07-19 11:45 | W.PN.GI.CBS2 ---
Today's Communication / Plan
-
ok to d/c home if tolerates diet
Assessment / Plan
-
Ms. Meza is a 75 y.o female GERD, history of diverticulitis, hx of breast cancer (in remission) and history of pancreatic cysts (s/p prior EUS 2022) who presented to the ED with generalized abdominal pain and weight loss. Found to have a
pancreatic lesion with concern for obstruction of the CBD with diffuse dilation of the biliary tree. GI has been consulted for further evaluation and management.
#Pancreatic Lesion, HOP
#Hx of Pancreatic Cysts (s/p EUS 05/2023)
#Doubt Duct Sign (PD and Biliary Dilation)
#C/f Biliary Obstruction #Elevated LFTs
#Abdominal Pain
#Unintentional Weight Loss
Prior EUS ([facility]- Aracely Overton MD PHD) 06/05/2023- Impression: Multiple pancreatic cysts throughout the pancreas. The largest one measured 2.2 cm in the HOP. I do not see any worrisome features within any of the cysts. Small
foci in the gallbladder, likely gallstone less likely polyp.
Recommendations: Await cytology/molecular markers. If there are no concerning features recommend ongoing surveillance with MRI/MRCP and clinic review in 6 months. No repeat EUS exam
Cytology: (+) Mucinous (IPMN), likely low HGD/cancer. Specifically, multiple KRAS mutations identified in the cystic fluid sample.
S/p EUS yesterday - showed dilated PD, complex cystic lesions in the body and also head. CBD was only mildly dilated at 8 mm. There was possible soft tissue lesion, did not appear to be mural nodule, FNA performed. Had detailed discussion w/ pt
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 Will need to wait for FNA results, even if it's
-ve for neoplasm will need close monitoring/intense surveillance. LFT improving further w/o any intervention this AM. F/u w/ me in office after d/c home, will also refer her to cyst clinic at [facility] for second opinion.
Total Time Spent with Patient (in minutes): 35
Subjective
Subjective
Date of Service: July 19, 2025
denies abdo pain
Objective
Data Reviewed
Laboratory Data:
Laboratory Results
07/19/25 08:17
07/19/25 08:17
Laboratory Results
PT 14.8 Sec (11.4-14.6) H 07/18/25 05:58
INR 1.14 07/18/25 05:58
APTT 26.4 Sec (23.4-35.0) 07/18/25 05:58
Magnesium 2.3 mg/dl (1.6-2.3) 07/19/25 08:17
Total Bilirubin 0.8 mg/dl (0.2-1.3) 07/19/25 08:17
AST 51 U/L (14-36) H 07/19/25 08:17
ALT 120 U/L (0-35) H 07/19/25 08:17
Alkaline Phosphatase 148 U/L (38-126) H 07/19/25 08:17
Lipase 67 U/L (23-300) 07/17/25 10:23
Vital Signs and I&O:
Vital Signs
Temp Pulse Resp BP Pulse Ox
97.8 F 59 16 118/54 97
07/19/25 08:00 07/19/25 08:00 07/19/25 08:00 07/19/25 08:00 07/19/25 08:00
I&O
07/18/25 07/19/25 07/20/25
06:59 06:59 06:59
Intake Total 1200 / 1200 1400 / 1400
Balance 1200 / 1200 1400 / 1400
[2025-07-19 12:34] VITALS: BP 108/55
--- NOTE | 2025-07-28 10:09 | PN.CDI ---
CDI
- -
CDI:
Physician Documentation Request
Admit Date: [f_Reg Admit Date Time]
Dear Doctor Roscoe,
Please review the following and provide your response in the progress notes.
Clinical Indicators:
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
Additional clinical indicators in the chart include:
-positive for malignant cells
-the malignant cells are positive for CK7 and weakly positive for CK20
-the findings favor pancreatic primary origin
Please indicate in your progress notes if you are in agreement that the above diagnosis is valid for this patient:
____ - malignant neoplasm of head of pancreas is a valid diagnosis (Please include it in your progress notes)
____ - malignant neoplasm of head of pancreas is not a valid diagnosis for this patient
____ - malignant neoplasm of head of pancreas is not yet confirmed but remains a suspected condition
____ - Other
____ - Unable to determine
Use of terms such as suspected, likely, concern for, or probable are acceptable for a diagnosis that is being evaluated, monitored or treated as if it exists and can be coded in the inpatient setting, when documented at the time of discharge.
Thank you,
[f_Mis Current User]
CDI Specialist
Please use your independent medical judgment in providing your response.
== END 2025-07-19 13:12 | disposition home or self-care (01) | DRG 435 ==
LOC: 1 ACUTE 14:42
PROVIDERS: Internal Medicine Gastroenterology; Physician Assistant Medical; ADMITTING PHYSICIAN Hospitalist; EMERGENCY PHYSICIAN Emergency Medicine; FAMILY PHYSICIAN Student in an Organized Health Care Education/Training Program; OTHER PHYSICIAN Student in an Organized Health Care Education/Training Program
PROC: 0F9G3ZX Drainage of Pancreas, Percutaneous Approach, Diagnostic (ICD-10-PCS; 2025-07-18)
DX: C25.0 Malignant neoplasm of head of pancreas (principal); K83.1 Obstruction of bile duct; K86.2 Cyst of pancreas; K57.32 Diverticulitis of large intestine without perforation or abscess without bleeding; K86.89 Other specified diseases of pancreas; I10 Essential (primary) hypertension; Z66 Do not resuscitate; Z79.899 Other long term (current) drug therapy
CPT/HCPCS: 74177; 74183; 80053; 83690; 83735; 85025; 85027; 85610; 85730; 87045; 87046; 87427; 87798; 88173; 88305; 88341; 88342; 88360; A9575; Q9967